=== PATIENT | male | born 1960 | race Caucasian/White ===

== ENCOUNTER 2024-03-18 14:46 | Outpatient (RCR) | payer MEDICARE, SELFPAY ==
--- NOTE | 2024-03-18 16:06 | OPREHPOC ---
Outpatient Therapy Plan of Care This is a Multidisciplinary Plan of Care that may contain components documented by all disciplines (PT, OT, and ST.) PT Problem 1 PT Problem #1 Knowledge Deficit PT Goal 1 Goal The patient will be independent in a home exercise program. Target Visit 2 PT Problem 2 PT Problem #2 Impaired Vestibular Syste PT Goal 1 Goal The patient will demonstrate negative Deb Hallpike and Supine Roll tests. Target Visit 6 Progress Partially Met PT Problem 3 PT Problem #3 Impaired Functional Mobil PT Goal 1 Goal 1. The patient will report the ability to lay on his side without vertigo symptoms. 2. The patient will demonstrate less than 6% self perceived disability per the [facility]. Target Visit 6
--- NOTE | 2024-03-18 16:06 | PTOPEVAL1 ---
Assessment and note entered by Marina Chavarria, PT Evaluation Information Assessment Status Evaluation ICD-10 Condition Codes (PT) BPPV right ear H81.11,BPPV H81.12 Onset 03/13/24 Subjective Information Pavithra Vaughan reports he had an inner ear infection in both ears about 3 weeks ago and the last 5-6 days he has not been able to sleep due to dizziness and pain in his ears. He went to the doctor and was prescribed an antibiotic which he thinks made him feel more dizzy. He notes dizziness when trying to lay on his side and when he sits up from laying down. He denies use of alcohol or tobacco. He also denies symptoms when moving his head up and down or side to side. He feels like he is the one moving when he feels dizzy. He has not experienced nausea or vomiting. He denies falls because of the dizziness. He does take medication for blood pressure and cholesterol but reports no changes in his medication. Reported Pain Level Pain Score 5: Self Report Assessment PT Clinical Summary Pavithra Vaughan presents with dizziness that occurs with laying down trying to sleep and when he sits up from laying down. He was recently diagnosed with an inner ear infection on both sides. He started having dizziness 5-6 days ago. He objectively demonstrates reproduction of symptoms with the R Deb Hallpike and R supine roll test. He was educated on positional vertigo and treatment consisting of the Wu manuever on the right side was applied. The patient reported minimal vertigo by the 3rd round. He will benefit from skilled PT to address positional vertigo. Plan of Care Interventions Neuro Re-education,Patient/Caregiver Educati, Therapeutic Exercise PT Services Indicated Yes Treatment Frequency and 2 times a week for 6 visists. Duration These treatments will address the objective and functional deficits as defined above. The patient will be advanced safely and appropriately in order for the patient to progress towards his/her prior level of function. Additional exercises will be introduced and as well as a comprehensive home exercise program upon discharge, if needed, ?to ensure carryover of functional gains achieved in the clinic. This treatment plan has been reviewed and agreement upon by the patient.
--- NOTE | 2024-03-27 14:24 | OPREHPOC ---
Outpatient Therapy Plan of Care This is a Multidisciplinary Plan of Care that may contain components documented by all disciplines (PT, OT, and ST.) PT Problem 1 PT Problem #1 Knowledge Deficit PT Goal 1 Goal The patient will be independent in a home exercise program. Target Visit 2 Progress Met PT Problem 2 PT Problem #2 Impaired Vestibular Syste PT Goal 1 Goal The patient will demonstrate negative Deb Hallpike and Supine Roll tests. Target Visit 6 Progress Met PT Problem 3 PT Problem #3 Impaired Functional Mobil PT Goal 1 Goal 1. The patient will report the ability to lay on his side without vertigo symptoms. 2. The patient will demonstrate less than 6% self perceived disability per the [facility]. Target Visit 6 Progress Met
--- NOTE | 2024-03-27 14:24 | PTOPDC ---
Assessment and note entered by Marina Chavarria, PT Evaluation Information Assessment Status Discharge ICD-10 Condition Codes (PT) BPPV right ear H81.11,BPPV H81.12 Onset 03/13/24 Subjective Information Pavithra Vaughan reports he is no longer experiencing dizziness or ringing in his ears. He has returned to all previous activities and is able to sleep without disturbance. Reported Pain Level Pain Score 0: Self Report Assessment PT Clinical Summary Pavithra Vaughan has completed 3 skilled PT visits for vertigo. He is reporting completely resolved symptoms and no difficulty performing daily activities and sleeping. He demonstrates no positive special tests indicating vertigo and he is able to move his head actively in all directions without vertigo. He will be discharged from skilled PT, Plan of Care PT Services Indicated No
== END 2024-03-27 14:44 | disposition home or self-care (01) ==
LOC: CHSPT 14:46
PROVIDERS: Visit Provider Nurse Practitioner Family
DX: H81.10 Benign paroxysmal vertigo, unspecified ear (principal)
CPT/HCPCS: 97110; 97112; 97161; 97750

== ENCOUNTER 2024-08-22 09:14 | Outpatient (CLI) | payer MEDICARE, SELFPAY ==
--- NOTE | ~2024-08-22 | CT_ITS ---
EXAMINATION: CT soft tissue neck w con DATE: 08/22/2024 10:16 INDICATION: Sore throat. Lymphadenopathy. Tonsillar hypertrophy. TECHNIQUE: Computed tomography (CT) of the neck was performed with 75 mL Omnipaque-350 intravenous co ntrast. Automated exposure control and iterative reconstruction technique were employed. The dose-kareem gth product was 508.34 mGy-cm. COMPARISON: None FINDINGS: A mildly enlarged right mid internal jugular chain node measures 11 x 14 mm. The pharynx an d larynx are unremarkable. There is fat stranding in the submandibular region. There is mild mucosal thickening in the paranasal sinuses. There is a trace left mastoid effusion. There is extensive denta l disease involving the remaining teeth. There is mild cervical spondylosis. There is plaque in the p roximal internal carotid arteries with less than 50% stenosis relative to normal distal artery lumen diameters. IMPRESSION: 1. Fat stranding in the submandibular region, consistent with inflammation versus edema. 2. Mildly enlarged right mid internal jugular chain lymph node, likely reactive. 3. Dental disease. Reviewed, dictated and finalized at location A. ATORY ANIMAL EXTERMINATOR IMPRESSION: 1. Fat stranding in the submandibular region, consistent with inflammation vers us edema. 2. Mildly enlarged right mid internal jugular chain lymph node, likely reactive . 3. Dental disease.
[2024-08-22 09:41] LABS: Basophils Absolute Auto 0.06 K/mm3 (0.00-0.10); Basophils Percent Auto 0.6 % (0.0-1.0); Eosinophils Absolute Auto 0.06 K/mm3 (0.02-0.50); Eosinophils Percent Auto 0.6 % (1.0-6.0); Hematocrit 44.3 % (37.0-46.0); Hemoglobin 14.7 g/dL (12.4-15.3); Immature Granulocyte Absolute 0.04 K/mm3 (0.00-0.00); Immature Granulocyte Percent A 0.4 % (0.0-0.0); Lymphocytes Absolute Auto 1.95 K/mm3 (1.10-4.50); Lymphocytes Percent Auto 19.1 % (18.0-42.0); Mean Corpuscular HGB Conc 33.2 g/dL (32-36); Mean Corpuscular Hemoglobin 27.7 pg (27.0-31.0); Mean Corpuscular Volume 83.4 fL (78.0-102.0); Mean Platelet Volume 9.3 fl (8.7-11.0); Monocytes Absolute Auto 1.02 K/mm3 (0.10-0.90); Neutrophils Absolute Auto 7.08 K/mm3 (1.70-7.20); Neutrophils Percent Auto 69.3 % (50.0-70.0); Platelet Count Result 214 K/mm3 (150-420); Red Blood Count 5.31 M/mm3 (4.70-6.10); Red Cell Distribution Width 13.2 % (11.6-14.4); White Blood Count 10.2 K/mm3 (4.8-10.8)
[2024-08-22 09:55] LABS: Alanine Aminotransferase 61 U/L (16-63); Alkaline Phosphatase 95 U/L (46-116); Anion Gap 8 mmol/L (4-12); Aspartate Amino Transferase 46 U/L (15-37); Blood Urea Nitrogen 16 mg/dL (7-18); Calcium 8.9 mg/dL (8.5-10.1); Carbon Dioxide 29 mmol/L (21-32); Chloride 100 mmol/L (98-108); Estimated Glomerular Filt Rate > 60; Glucose 105 mg/dL (70-99); Osmolality Calculated 285 mOsm/kg (285-295); Potassium 4.1 mmol/L (3.5-5.1); Sodium 137 mmol/L (136-145); Total Protein 7.5 g/dL (6.4-8.2)
== END 2024-08-22 09:15 | disposition home or self-care (01) ==
PROVIDERS: PCP Internal Medicine; Visit Provider Nurse Practitioner Family
DX: J02.9 Acute pharyngitis, unspecified (principal); R59.1 Generalized enlarged lymph nodes; J35.1 Hypertrophy of tonsils; R59.0 Localized enlarged lymph nodes; K08.9 Disorder of teeth and supporting structures, unspecified
CPT/HCPCS: 36415; 70491; 80053; 85025; 87070; Q9967

== ENCOUNTER 2024-10-16 13:56 | Outpatient (CLI) | payer MEDICARE, SELFPAY ==
--- NOTE | 2024-10-16 14:01 | ECG_ITS ---
Test Date: 2024-10-16 14:13:06 Measurements Intervals [place] Rate: 88 P: 58 HI: 184 QRS: 51 QRSD: 118 T: 58 QT: 375 QTc: 455 Interpretive Statements SINUS RHYTHM No previous ECG available for comparison Electronically Signed On 10-16-2024 14:14:51 [employer] by Claudy Glover M.D.
--- OUTSIDE RECORDS SUMMARY | 2024-10-16 15:15 | XMS_ITS | Clinical Summary ---
Author Organization [facility] Address [address] [place] [address] Care Team Providers Care Sap Manager Name Role Phone Júnior Christine MD Primary Care Provider [phone] Allergies No known active allergies Medications lisinopril 10 MG tablet Take 1 tablet (10 mg total) by mouth daily. Active atorvastatin 10 MG tablet Take 1 tablet (10 mg total) by mouth nightly at bedtime. Active albuterol (2.5 MG/3ML) 0.083% nebulizer solution 06/09/2021 Active ibuprofen (MOTRIN) 800 MG tablet Take 1 tablet (800 mg total) by mouth every 8 (eight) hours as needed for Pain. 21 tablet 08/12/2024 Active Active Problems No known active problems Encounters Date Type Department Care Team Description 08/26/2024 7:39 AM MANUFACTURING INDUSTRIAL ENGINEER - 08/26/2024 11:59 PM [facility] Hospital Encounter [facility] [address] [place] [address] Júnior Christine MD Discharge Disposition: Home or Self Care (Routine Discharge) 08/26/2024 7:39 AM MANUFACTURING INDUSTRIAL ENGINEER - 08/26/2024 11:59 PM [facility] Hospital Encounter [facility] [address] [place] [address] Júnior Christine MD Discharge Disposition: Home or Self Care (Routine Discharge) 08/26/2024 Travel 08/15/2024 7:23 PM MANUFACTURING INDUSTRIAL ENGINEER - 08/15/2024 8:42 PM [facility] [address] [place] [address] Get Serra DO Sore Throat Discharge Disposition: Home or Self Care (Routine Discharge) 08/15/2024 Travel 08/12/2024 4:45 PM MANUFACTURING INDUSTRIAL ENGINEER - 08/12/2024 5:03 PM MANUFACTURING INDUSTRIAL ENGINEER [facility] [address] [place] [address] [place] [address] Adelita Juan MD Leg Pain Discharge Disposition: Home or Self Care (Routine Discharge) 08/12/2024 Travel 08/07/2024 Transcribe Orders [facility] Pre Access Team [address] [place] [address] Yasmani Hernandez MD 08/03/2024 7:27 PM MANUFACTURING INDUSTRIAL ENGINEER - 08/03/2024 8:54 PM MANUFACTURING INDUSTRIAL ENGINEER [facility] [address] [place] [address] [place] [address] Charity Burnham MD Respiratory Symptoms Discharge Disposition: Home or Self Care (Routine Discharge) 08/03/2024 Travel from Last 3 Months Family History Medical History Relation Comments Mental Health Father Asthma Mother Relation Status Comments Father Mother Social History Tobacco Use Types Packs/Day Years Used Date Smoking Tobacco: Never Smokeless Tobacco: Never Alcohol Use Standard Drinks/Week Comments No 0 (1 standard drink = 0.6 oz pur e alcohol) AUDIT-C Answer Date Recorded Frequency of Alcohol Consumption Never 08/25/2019 Average Number of Drinks Not on file 020 Frequency of Binge Drinking Not on file 08/13 Sex and Gender Information Value Date Recorded Sex Assigned at Not on file Legal Sex Male 8:51 PM CDT Gender Identity Not on file Sexual Orientation Not on file Last Filed Vital Signs Vital Sign Reading Time Taken Comments Blood Pressure 163/91 08/15/2024 8:42 PM MANUFACTURING INDUSTRIAL ENGINEER Pulse 104 08/15/2024 7:30 PM MANUFACTURING INDUSTRIAL ENGINEER Temperature 36.6 C (97.8 F) 08/15/2024 7:30 PM MANUFACTURING INDUSTRIAL ENGINEER Respiratory Rate 18 08/15/2024 7:30 PM MANUFACTURING INDUSTRIAL ENGINEER Oxygen Saturation 92% 08/15/2024 8:41 PM MANUFACTURING INDUSTRIAL ENGINEER Inhaled Oxygen Concentration - - Weight 119.7 kg (263 lb 12.8 oz) 08/15/2024 7:30 PM MANUFACTURING INDUSTRIAL ENGINEER Height 172.7 cm (5' 8 ) 08/15/2024 7:30 PM MANUFACTURING INDUSTRIAL ENGINEER Body Mass Index 40.11 08/15/2024 7:30 PM MANUFACTURING INDUSTRIAL ENGINEER Plan of Treatment Health Maintenance Due Date Last Done Comments Colorectal Cancer Screening Colonoscopy (10 Years) 1960 Hepatitis C 1977 DTaP, Tdap and Td Vaccines ( 1 - Tdap) 1978 Zoster Vaccines (1 of 2) 2009 RSV Immunization or 60+ Years (1 - Risk 60-74 years 1-dose series) 2019 Pneumococcal Vaccine: 65+ Ye ars (1 of 1 - PCV) 02/09/2024 COVID-19 Vaccine (1 - 2023-2 5 season) 2024 Influenza Adult (#1) 2024 Meningococcal B Vaccine Aged Out No l onger eligible based on patient's age to complete this topic Meningococcal Vaccine Aged Out No gia alvin eligible based on patient's age to complete this topic Pneumococcal Vaccine: Pediat rics (0 to 5 Years) and At-Risk Patients (6 to 64 Years) Aged Out No longer eligible b ased on patient's age to complete this topic RSV Immunizations Under 20 Months Aged Out No longer eligible based on patient's age to complete this topic Procedures Procedure Name Priority Date/Time Associated Diagnosis Comments USE ECHOCARDIOGRAM W CON Routine 08/26/2024 9:28 AM MANUFACTURING INDUSTRIAL ENGINEER Dyspnea PULMONARY FUNCTION TEST Routine 08/26/19 7:39 AM MANUFACTURING INDUSTRIAL ENGINEER Dyspnea INFLUENZA A & B STAT 08/15/2024 7:21 PM MANUFACTURING INDUSTRIAL ENGINEER STREP A RAPID STAT 08/15/2024 7:21 PM MANUFACTURING INDUSTRIAL ENGINEER CORONAVIRUS (COVID-19) ANTIGEN STAT 08/15/2024 7:21 PM MANUFACTURING INDUSTRIAL ENGINEER XR CHEST PORTABLE STAT 08/03/2024 8:1 8 PM MANUFACTURING INDUSTRIAL ENGINEER ECG 12-LEAD STAT 08/03/2024 8:02 PM MANUFACTURING INDUSTRIAL ENGINEER PRO-BRAIN NATRIURETIC PEPTIDE STAT 08/03/2024 7:55 PM MANUFACTURING INDUSTRIAL ENGINEER MAGNESIUM STAT 08/03/2024 7:55 PM MANUFACTURING INDUSTRIAL ENGINEER TROPONIN, QUANT STAT 08/03/2024 7:55 PM MANUFACTURING INDUSTRIAL ENGINEER COMPREHENSIVE METABOLIC PANEL STAT 08/03/2024 7:55 PM MANUFACTURING INDUSTRIAL ENGINEER CBC W/DIFF AUTOMATED STAT 08/03/2024 7:55 PM MANUFACTURING INDUSTRIAL ENGINEER INFLUENZA A & B STAT 08/03/2024 7:50 PM MANUFACTURING INDUSTRIAL ENGINEER CORONAVIRUS (COVID-19) ANTIGEN STAT 08/03/2024 7:50 PM MANUFACTURING INDUSTRIAL ENGINEER from Last 3 Months Results * USE ECHOCARDIOGRAM W CON (08/26/2024 9:28 AM MANUFACTURING INDUSTRIAL ENGINEER) Anatomical Region Laterality Modality NA Ultrasound 08/26/2024 8:40 AM MANUFACTURING INDUSTRIAL ENGINEER Narrative 08/27/2024 7:22 AM MANUFACTURING INDUSTRIAL ENGINEER Echocardiography Report Pat.Name: Pavithra Vaughan Pat.ID: [id number] .Date: 08/26/2024 Refer.MD: Jose Luis, [facility] Exam Time: 8:40:00 AM Study Type:[facility] Height: 68 in Weight: 248 lb BSA: 2.24 m2 Age: 6 1960,64Y Sex: M Sonogrphr: Am Pat. Stat.:Outpatient Reason for Study:Dyspnea Procedures: Study performed at [facility], [place], [place] and interpreted by [facility]. 2D, M-mode, Doppler, Color Flow, Myocardial contrast was used to enhance endocardial definition. ++++++++++++++++++++++++++++++++++++ SUMMARY: ++++++++++++++++++++++++++++++++++++ The left ventricular size is normal. Estimated left ventricular ejection fraction is 55-60%. Left ventricular diastolic function is abnormal (grade 1 - impaired relaxation). Wall motion appears normal in all segments. The right ventricle size is normal. The right ventricular function is normal. No evidence of pericardial effusion. No significant valvular heart disease. ++++++++++++++++++++++++++++++++++++ FINDINGS: ++++++++++++++++++++++++++++++++++++ LV: The left ventricular size is normal. The left ventricular systolic function is normal. Estimated left ventricular ejection fraction is 55-60%. Left ventricular diastolic function is abnormal (grade 1 - impaired relaxation). WM: Wall motion appears normal in all segments. RV: The right ventricle size is normal. The right ventricular function is normal. LA: Left atrial size is normal. RA: The right atrial size is normal. STEPHEN: No evidence of pericardial effusion. AO: Aorta is normal. PA: Unable to reliably quantitate pulmonary systolic pressure. SVn: Inferior vena cava is not assessable. AV: The aortic valve is trileaflet. No evidence of aortic valve stenosis. Trace aortic regurgitation. MV: The mitral valve is structurally normal. There is trace mitral regurgitation. PV: The pulmonic valve is normal There is trace pulmonic regurgitation TV: The tricuspid valve appears structurally normal. There is trace tricuspid regurgitation. <Electronic Signature> 08/27/2024 07:22 AM Brisa Medrano M.D. Procedure Note Brisa Medrano MD - 08/27/2024 Echocardiography Report Pat.Name: Pavithra Vaughan Pat.ID: [id number] .Date: 08/26/2024 [facility]00 AM Study Type:[facility] Height: 68 in Weight: 248 lb BSA: 2.24 m2 Age: 6 1960,64Y Sex: M Sonogrphr: Am Pat. Stat.:Outpatient Reason for Study:Dyspnea Procedures: Study performed at [place], [place] and interpreted by [facility]. 2D, M-mode, Doppler, Color Flow, Myocardial contrast was used to enhance endocardial definition. ++++++++++++++++++++++++++++++++++++ SUMMARY: ++++++++++++++++++++++++++++++++++++ The left ventricular size is normal. Estimated left ventricular ejection fraction is 55-60%. Left ventricular diastolic function is abnormal (grade 1 - impaired relaxation). Wall motion appears normal in all segments. The right ventricle size is normal. The right ventricular function is normal. No evidence of pericardial effusion. No significant valvular heart disease. ++++++++++++++++++++++++++++++++++++ FINDINGS: ++++++++++++++++++++++++++++++++++++ LV: The left ventricular size is normal. The left ventricular systolic function is normal. Estimated left ventricular ejection fraction is 55-60%. Left ventricular diastolic function is abnormal (grade 1 - impaired relaxation). WM: Wall motion appears normal in all segments. RV: The right ventricle size is normal. The right ventricular function is normal. LA: Left atrial size is normal. RA: The right atrial size is normal. STEPHEN: No evidence of pericardial effusion. AO: Aorta is normal. PA: Unable to reliably quantitate pulmonary systolic pressure. SVn: Inferior vena cava is not assessable. AV: The aortic valve is trileaflet. No evidence of aortic valve stenosis. Trace aortic regurgitation. MV: The mitral valve is structurally normal. There is trace mitral regurgitation. PV: The pulmonic valve is normal There is trace pulmonic regurgitation TV: The tricuspid valve appears structurally normal. There is trace tricuspid regurgitation. <Electronic Signature> 08/27/2024 07:22 AM Brisa Medrano M.D. Júnior Christine MD ECHO Final Result * CORONAVIRUS (COVID-19) ANTIGEN (08/15/2024 7:21 PM MANUFACTURING INDUSTRIAL ENGINEER) Only the most recent of2 resultswithin the time period is included. [facility] CORONAVIRUS ANTIGEN IA NEGATIVE NEGATIVE 08/15/2024 8:09 PM MANUFACTURING INDUSTRIAL ENGINEER [facility] Comment: NEGATIVE RESULTS DO NOT RULE OUT SARS-COV-2 INFECTION AND SHOULD NOT BE USED THE SOLE BASIS FOR TREATMENT OR PATIENT MANAGEMENT DECISIONS, INCLUDING INFECTION CONTROL DECISIONS. NEGATIVE RESULTS SHOULD BE CONSIDERED IN THE CONTEXT OF A PATIENT'S RECENT EXPOSURES, HISTORY AND THE PRESENCE OF CLINICAL SIGNS AND SYMPTOMS CONSISTENT WITH COVID 19. THIS TEST HAS BEEN AUTHORIZED BY THE FDA UNDER AN EMERGENCY USE AUTHORIZATION (EUA) FOR USE BY AUTHORIZED LABORATORIES. SPECIMEN TYPE NASAL 08/15/2024 7:30 PM MANUFACTURING INDUSTRIAL ENGINEER [facility] NASAL NASAL STRUCTURE / Unknown 08/15/2024 7:21 PM MANUFACTURING INDUSTRIAL ENGINEER us Get Serra DO MICROBIOLOGY - GENERAL ORDERABLE S Final Result [facility] [employer] [place] [address], * INFLUENZA A & B (08/15/2024 7:21 PM MANUFACTURING INDUSTRIAL ENGINEER) Only the most recent of2 resultswithin the time period is included. SPECIMEN TYPE (INFLUENZA) NASAL 08/15/2024 7:30 PM MANUFACTURING INDUSTRIAL ENGINEER [facility] INFLUENZA A NEGATIVE NEGATIVE 08/15/2024 8:09 PM MANUFACTURING INDUSTRIAL ENGINEER [facility] INFLUENZA B NEGATIVE NEGATIVE 08/15/2024 8:09 PM MANUFACTURING INDUSTRIAL ENGINEER [facility] Comment: A NEGATIVE RESULT DOES NOT EXCLUDE INFLUENZA VIRUS INFECTION. IF INFLUENZA IS CIRCULATING IN YOUR COMMUNITY, A DIAGNOSIS OF INFLUENZA SHOULD BE CONSIDERED BASED ON A PATIENT'S CLINICAL PRESENTATION AND EMPIRIC ANTIVIRAL TREATMENT SHOULD BE CONSIDERED IF INDICATED. NASAL STRUCTURE / Unknown 08/15/2024 7:21 PM MANUFACTURING INDUSTRIAL ENGINEER us Get Serra DO MICROBIOLOGY - GENERAL ORDERABLE S Final Result [facility] [address] [place] [address], [place] [phone] * STREP A RAPID (08/15/2024 7:21 PM MANUFACTURING INDUSTRIAL ENGINEER) SPECIMEN SOURCE THROAT 08/15/2024 7:30 PM MANUFACTURING INDUSTRIAL ENGINEER [facility] RAPID STREP TEST NEGATIVE NEGATIVE 08/15/2024 7:49 PM MANUFACTURING INDUSTRIAL ENGINEER [facility] STRUCTURE OF ANTERIOR PORTION OF NECK / Unknown 08/15/2024 7:21 PM MANUFACTURING INDUSTRIAL ENGINEER us Get Serra DO MICROBIOLOGY - GENERAL ORDERABLE S Final Result [facility] [address] [place] [address], * XR CHEST PORTABLE (08/03/2024 8:18 PM MANUFACTURING INDUSTRIAL ENGINEER) Anatomical Region Laterality Modality Chest Radiographic Sandrita ging 08/03/2024 8:36 PM MANUFACTURING INDUSTRIAL ENGINEER Impressions 08/03/2024 9:25 PM MANUFACTURING INDUSTRIAL ENGINEER IMPRESSION: 1. Central pulmonary vascular congestion with no jimmie pulmonary edema. Trace left-sided pleural effusion. Dictated By: James Samaniego MD on 08/03/2024 8:36 PM The attending radiologist has reviewed the image(s) and agrees with the content of this report. Ordered By: CHARITY BURNHAM Interpreted By: James Samaniego MD, 08/03/2024 8:36 PM Narrative 08/03/2024 9:25 PM MANUFACTURING INDUSTRIAL ENGINEER [place] [address] [place] [address] Examination: XR CHEST PORTABLE Clinical history: Chest pain Exam time: 08/03/2024 8:18 PM Comparison: X-ray 08/19/2023, 10/20/2021 Technique: AP views of the chest were obtained. Findings: The cardiomediastinal silhouette appears unremarkable and the heart size is within normal parameters. Central pulmonary vascular congestion. No parenchymal consolidations are identified. Trace left-sided pleural effusion. There is no pneumothorax. No acute osseous abnormality is identified. Procedure Note Rommel Tapia MD - 08/03/2024 [place] [address] [place] [address] Examination: XR CHEST PORTABLE Clinical history: Chest pain Exam time: 08/03/2024 8:18 PM Comparison: X-ray 08/19/2023, 10/20/2021 Technique: AP views of the chest were obtained. Findings: The cardiomediastinal silhouette appears unremarkable and the heart sizeis within normal parameters. Central pulmonary vascular congestion. Noparenchymal consolidations are identified. Trace left-sided pleuraleffusion. There is no pneumothorax. No acute osseous abnormality isidentified. IMPRESSION: 1. Central pulmonary vascular congestion with no jimmie pulmonary edema.Trace left-sided pleural effusion. Dictated By: James Samaniego MD on 08/03/2024 8:36 PM The attending radiologist has reviewed the image(s) and agrees with thecontent of this report. Ordered By: CHARITY BURNHAM Interpreted By: James Samaniego MD, 08/03/2024 8:36 PM us Charity Burnham MD GENERAL IMAGING Final Result * ECG 12 lead (08/03/2024 8:02 PM MANUFACTURING INDUSTRIAL ENGINEER) 08/03/2024 8:02 PM MANUFACTURING INDUSTRIAL ENGINEER Narrative [facility] - 08/03/2024 9:27 PM MANUFACTURING INDUSTRIAL ENGINEER [address] [place] [address] Test Date: 2024-08-03 Pat Name: PAVITHRA VAUGHAN Department: 3 Room: EXAM 5 Gender: Male Lead Shipper: : 1960 Requested By: CHARITY BURNHAM Order Number: [id number] Sergio MD: Todd Iglesias Measurements Intervals [place] Rate: 85 P: 28 [place]: 197 QRS: 6 QRSD: 90 T: 36 QT: 342 QTc: 407 Interpretive Statements SINUS RHYTHM FACTURING INDUSTRIAL ENGINEER Procedure Note Todd Iglesias MD - 08/03/[address] [place] [address] Test Date: 2024-08-03 Pat Name: PAVITHRA VAUGHAN Department: 3 Room: EXAM 5 Gender: Male Lead Shipper: : 1960 Requested By: CHARITY BURNHAM Order Number: [id number] Reading MD: Todd Iglesias Measurements Intervals [place] Rate: 85 P: 28 [place]: 197 QRS: 6 QRSD: 90 T: 36 QT: 342 QTc: 407 Interpretive Statements SINUS RHYTHM FACTURING INDUSTRIAL ENGINEER Charity Burnham MD ECG ORDERABLES Final Result Performing Organization Address [facility] Co de Phone Number [facility] * PRO-BRAIN NATRIURETIC PEPTIDE (08/03/2024 7:55 PM MANUFACTURING INDUSTRIAL ENGINEER) PRO-B TYPE NATRIURETIC PEPTIDE 27 <125 PG/ML 08/03/2024 8:26 PM MANUFACTURING INDUSTRIAL ENGINEER [facility] Comment: CUT POINTS ESTABLISHED BY INTERNATIONAL COLLABORATIVE ON NT PROBNP (ICON) STUDY (2006). AGE INDEPENDENT: <300 PG/ML HAS A 99% NEGATIVE PREDICTIVE VALUE FOR EXCLUDING ACUTE CHF <50 YEARS: >450 PG/ML IS CONSISTENT WITH ACUTE CHF 50-75 YEARS: >900 PG/ML IS CONSISTENT WITH ACUTE CHF >75 YEARS: >1800 PG/ML IS CONSISTENT WITH ACUTE CHF IN PATIENTS WITH RENAL INSUFFICIENCY (GFR <60), >1200 PG/ML YIELDS A DIAGNOSTIC SENSITIVITY AND SPECIFICITY OF 89% AND 72% FOR ACUTE CHF. 08/03/2024 7:55 PM MANUFACTURING INDUSTRIAL ENGINEER us Charity Burnham MD LABORATORY Final Result Performing Organization Address City/[facility]/ZIP Co de Phone Number [facility] [address] [place] [address], * (ABNORMAL) COMPREHENSIVE METABOLIC PANEL (08/03/2024 7:55 PM MANUFACTURING INDUSTRIAL ENGINEER) SODIUM S/P/B 140 136 - 145 MMOL/L 08/03/2024 8:26 PM MANUFACTURING INDUSTRIAL ENGINEER [facility] POTASSIUM S/P/B 3.9 3.5 - 5.1 MMOL/L 08/03/2024 8:26 PM [facility] CHLORIDE S/P/B 102 98 - 107 MMOL/L 08/03/2024 8:26 PM [facility] CO2 26.2 21.0 - 32.0 MMOL/L 08/03/2024 8:26 PM [facility] GLUCOSE 119(H) 70 - 99 MG/DL 08/03/2024 8:26 PM [facility] Comment: FASTING GLUCOSE 100 TO 125 MG/DL IS CONSISTENT WITH IMPAIRED FASTING GLUCOSE. FASTING GLUCOSE >125 MG/DL IS CONSISTENT WITH DIABETES. RANDOM GLUCOSE >200 MG/DL WITH HYPERGLYCEMIC SYMPTOMS IS CONSISTENT WITH DIABETES. PER ADA GUIDELINES BUN 20 6 - 24 MG/DL 08/03/2024 8:26 PM [facility] CREATININE S/P/B 0.97 0.70 - 1.30 MG/DL 08/03/2024 8:26 PM [facility] CALCIUM S/P/B 8.9 8.4 - 10.5 MG/DL 08/03/2024 8:26 PM [facility] BILIRUBIN TOTAL S/P/B 0.4 0.2 - 1.0 MG/DL 08/03/2024 8:26 PM [facility] Comment: THIS ASSAY IS NOT RECOMMENDED FOR PATIENTS UNDERGOING TREATMENT WITH ELTROMBOPAG DUE TO THE POTENTIAL FOR FALSELY ELEVATED RESULTS. ALKALINE PHOSPHATASE S/P/B 104 45 - 115 U/L 08/03/2024 8:26 PM [facility] AST 23 15 - 37 U/L 08/03/2024 8:26 PM [facility] ALT 40 16 - 63 U/L 08/03/2024 8:26 PM [facility] TOTAL PROTEIN S/P/B 7.5 6.4 - 8.2 G/DL 08/03/2024 8:26 PM [facility] ALBUMIN S/P/B 3.9 3.4 - 5.0 G/DL 08/03/2024 8:26 PM [facility] ANION GAP 11.8 5.0 - 15.0 MMOL/L 08/03/2024 8:26 PM [facility] OSMOLALITY (CALC) 294 MOSM/KG 024 8:26 PM MANUFACTURING INDUSTRIAL ENGINEER [facility] Comment:REFERENCE RANGE NOT ESTABLISHED GFR ESTIMATE 87(L) >89 ML/MIN/1. 73 M2 08/03/2024 8:26 PM MANUFACTURING INDUSTRIAL ENGINEER [facility] GFR NOTES GFR REFERENCE S: 08/03/2024 8:26 PM MANUFACTURING INDUSTRIAL ENGINEER [facility] Comment: THE ESTIMATED GFR IS CALCULATED USING THE 2020 CKD-EPI EQUATION. THE FOLLOWING CATEGORIES FOR GRADING RENAL FUNCTION ARE RECOMMENDED BY THE INTERNATIONAL SOCIETY OF NEPHROLOGY (KDIGO 2012 CLINICAL PRACTICE GUIDELINE). G1,NORMAL OR HIGH: >89 ml/min/1.73 m2 G2,MILDLY DECREASED: 60-89 ml/min/1.73 m2 G3A,MILDLY TO MODERATELY DECREASED: 45-59 ml/min/1.73 m2 G3B,MODERATELY TO SEVERELY DECREASED: 30-44 ml/min/1.73 m2 G4,SEVERELY DECREASED: 15-29 ml/min/1.73 m2 G5,KIDNEY FAILURE: <15 ml/min/1.73 m2 08/03/2024 7:55 PM MANUFACTURING INDUSTRIAL ENGINEER us Charity Burnham MD LABORATORY Final Result [facility] [address] [place] [address], * (ABNORMAL) CBC W/DIFF AUTOMATED (08/03/2024 7:55 PM MANUFACTURING INDUSTRIAL ENGINEER) WBC 11.15(H) 4.00 - 10.80 x10'3/uL 08/03/2024 8:04 PM MANUFACTURING INDUSTRIAL ENGINEER [facility] RBC 5.32 4.50 - 6.10 x10'6/uL 08/03/2024 8:04 PM MANUFACTURING INDUSTRIAL ENGINEER [facility] HGB 15.2 13.0 - 18.0 G/DL 08/03/2024 8:04 PM MANUFACTURING INDUSTRIAL ENGINEER [facility] HCT 43.8 37.0 - 52.0 % 08/03/2024 8:04 PM MANUFACTURING INDUSTRIAL ENGINEER [facility] MCV 82.3 78.0 - 100.0 FL 08/03/2024 8:04 PM [facility] MCH 28.6 27.0 - 31.0 PG 08/03/2024 8:04 PM [facility] MCHC 34.7 33.0 - 36.0 G/DL 08/03/2024 8:04 PM [facility] RDW 12.7 11.5 - 14.5 % 08/03/2024 8:04 PM [facility] PLT 220 150 - 350 x10'3/uL 08/03/2024 8:04 PM [facility] MPV 10.2 7.4 - 10.4 FL 08/03/2024 8:04 PM [facility] CBC COMMENT NORMAL REFERENCE RANGE NOT ESTABLISHED FOR THE PROPORTIONAL LEUKOCYTE DIFFERENTIAL. 08/03/2024 8:04 PM [facility] NEUTROPHILS % 59.3 % 08/03/2024 8:04 PM [facility] LYMPHOCYTES % 25.0 % 08/03/2024 8:04 PM [facility] MONOCYTES % 9.8 % 08/03/2024 8:04 PM [facility] EOSINOPHILS % 4.5 % 08/03/2024 8:04 PM [facility] BASOPHILS % 1.0 % 08/03/2024 8:04 PM [facility] IMMATURE GRANS % 0.4 % 08/03/20 8:04 PM [facility] NRBC % 0.0 % 08/03/2024 8:04 PM [facility] ABS. NEUTROPHILS 6.62 1.60 - 8.30 x10'3/uL 08/03/2024 8:04 PM [facility] ABS. LYMPHOCYTES 2.79 0.80 - 4.70 x10'3/uL 08/03/2024 8:04 PM [facility] ABS. MONOCYTES 1.09 0.00 - 1.50 x10'3/uL 08/03/2024 8:04 PM [facility] ABS. EOSINOPHILS 0.50(H) 0.00 - 0.40 x10'3/uL 08/03/2024 8:04 PM MANUFACTURING INDUSTRIAL ENGINEER [facility] ABS. BASOPHILS 0.11 0.00 - 0.20 x10'3/uL 08/03/2024 8:04 PM MANUFACTURING INDUSTRIAL ENGINEER [facility] ABS. IMMATURE GRANULOCYTES 0.04(H) 0.00 - 0.03 x10'3/uL 08/03/2024 8:04 PM MANUFACTURING INDUSTRIAL ENGINEER [facility] ABS. NUCLEATED RBC'S 0.00 0.00 - 0.01 x10'3/uL 08/03/2024 8:04 PM MANUFACTURING INDUSTRIAL ENGINEER [facility] 08/03/2024 7:55 PM MANUFACTURING INDUSTRIAL ENGINEER us Charity Burnham MD LABORATORY Final Result Performing Organization Address [facility]/[place] [address], * TROPONIN, QUANT (08/03/2024 7:55 PM MANUFACTURING INDUSTRIAL ENGINEER) TROPONIN I HIGH SENSITIVITY 10 0 - 76 ng/L 08/03/2024 8:26 PM MANUFACTURING INDUSTRIAL ENGINEER [facility] 08/03/2024 7:55 PM MANUFACTURING INDUSTRIAL ENGINEER us Charity Burnham MD LABORATORY Final Result Performing Organization Address City/[facility]/ZIP Co de Phone Number [facility] [address] [place] [address], * MAGNESIUM (08/03/2024 7:55 PM MANUFACTURING INDUSTRIAL ENGINEER) MAGNESIUM 2.0 1.8 - 2.4 MG/DL 08/03/2024 8:26 PM MANUFACTURING INDUSTRIAL ENGINEER [facility] 08/03/2024 7:55 PM MANUFACTURING INDUSTRIAL ENGINEER us Charity Burnham MD LABORATORY Final Result [facility] [address] [place] [address], [place] [phone] from Last 3 Months Insurance [facility] MEDICAID Care Teams Sap Manager Relationship Specialty Start Date End Date Júnior Christine MD [address] [place] [address] PCP - General INTERNAL MEDICINE 08/12/24
--- OUTSIDE RECORDS SUMMARY | 2024-10-16 15:15 | XMS_ITS | Encounter Summary ---
Author Organization [facility] Address [facility] [place] [address] Care Team Providers Care Machine Tender Name Role Phone Yasmani Hernandez MD Primary Care Provider [phone] Júnior Christine MD Primary Care Provider [phone] Encounter Details Date Type Department Care Team (Late st Contact Info) Description 01/18/2019 Abstract [facility] CONVERSION [address] [place] [address] , Generic Javed, Social History Tobacco Use Types Packs/Day Years Used Date Smoking Tobacco: Never Assessed Sex and Gender Information Value Date Recorded Sex Assigned at Not on file Legal Sex Male 8:51 PM CDT Gender Identity Not on file Sexual Orientation Not on file documented as of this encounter Plan of Treatment Not on file documented as of this encounter Visit Diagnoses Not on filedocumented in this encounter Additional Health Concerns Infection Onset Date Last Indicated Resolved Time COVID-19 Rule Out 07/10/2021 07/10/2021 07/10/2021 10:55 AM CHEMICAL EDUCATOR COVID-19 Rule Out 08/19/2023 08/19/2023 08/19/2023 11:28 AM CHEMICAL EDUCATOR COVID-19 Confirmed 08/19/2023 08/19/2023 12:32 AM CHEMICAL EDUCATOR COVID-19 Rule Out 08/03/2024 08/03/2024 08/03/2024 8:20 PM CHEMICAL EDUCATOR COVID-19 Rule Out 08/15/2024 08/15/2024 08/15/2024 8:09 PM CHEMICAL EDUCATOR documented as of this encounter Care Teams Machine Tender Relationship Specialty Start Date End Date Yasmani Hernandez MD [address] [place] [phone] PCP - General FAMILY PRACTICE 03/18/19 08/11/24 Júnior Christine MD [address] [place] [id number] PCP - General INTERNAL MEDICINE 08/12/24 documented as of this encounter
== END 2024-10-16 13:57 | disposition home or self-care (01) ==
LOC: CHSCARD 13:58
PROVIDERS: PCP Internal Medicine; Visit Provider Internal Medicine Cardiovascular Disease
DX: R00.2 Palpitations (principal)
CPT/HCPCS: 93005

== ENCOUNTER 2025-01-12 07:48 | Outpatient (CLI) | payer MEDICARE, SELFPAY ==
--- NOTE | 2025-01-12 07:53 | EST_ITS ---
Patient Info Name: Pavithra Vaughan Age: 64 years : 1960 Gender: Male Ht: 68 in Wt: 262 lbs BSA: 2.44 m2 HR: 73 bpm BP: 130 / 77 mmHg Heart Rhythm: Sinus Rhythm Technical Quality: Good Exam Date: 01/12/2025 7:53 AM Patient Status: O Admit Date: 01/12/2025 Exam Type: CA stress test treadmill w NM A treadmill exercise stress test was performed. Staff Referring Physician: Carlos Stevenson DO Attending Provider: Carlos Stevenson DO Summary 1. 1. Negative Yasmani exercise stress test for ischemic ST changes by ECG criteria. 2. 2. Poor functional capacity, achieving 4.7 METs of workload. 3. 3. Appropriate HR response to exercise. 4. 4. Appropriate HR recovery at 1 minute post exercise. 5. 5. Nuclear scan to follow and will be reported separately. Please correlate with it. History/Risk Factors Hypertension: Yes Protocol: Yasmani Stress ECG Details Stage: REST Duration (min): 1 min : 42 sec Speed (mph): 0.0 Grade (%): 0 HR (bpm): 74 SBP (mmHg): 130 DBP (mmHg): 77 METS: --- Stage: REST Duration (min): 5 min : 7 sec Speed (mph): 0.0 Grade (%): 0 HR (bpm): 80 SBP (mmHg): 130 DBP (mmHg): 77 METS: --- Stage: STAGE 1 Duration (min): 1 min : 0 sec Speed (mph): 1.7 Grade (%): 10 HR (bpm): 109 SBP (mmHg): 130 DBP (mmHg): 77 METS: --- Stage: STAGE 1 Duration (min): 2 min : 0 sec Speed (mph): 1.7 Grade (%): 10 HR (bpm): 122 SBP (mmHg): 130 DBP (mmHg): 77 METS: --- Stage: STAGE 1 Duration (min): 3 min : 0 sec Speed (mph): 1.7 Grade (%): 10 HR (bpm): 129 SBP (mmHg): 130 DBP (mmHg): 77 METS: --- Stage: STAGE 1 Duration (min): 4 min : 0 sec Speed (mph): 1.7 Grade (%): 10 HR (bpm): 131 SBP (mmHg): 130 DBP (mmHg): 77 METS: --- Stage: STAGE 1 Duration (min): 5 min : 0 sec Speed (mph): 1.7 Grade (%): 10 HR (bpm): 135 SBP (mmHg): 130 DBP (mmHg): 77 METS: --- Stage: STAGE 1 Duration (min): 6 min : 0 sec Speed (mph): 1.7 Grade (%): 10 HR (bpm): 138 SBP (mmHg): 130 DBP (mmHg): 77 METS: --- Stage: STAGE 1 Duration (min): 6 min : 0 sec Speed (mph): 1.7 Grade (%): 10 HR (bpm): 139 SBP (mmHg): 130 DBP (mmHg): 77 METS: --- Stage: RECOVERY Duration (min): 0 min : 59 sec Speed (mph): 0.0 Grade (%): 0 HR (bpm): 127 SBP (mmHg): 130 DBP (mmHg): 77 METS: --- Stage: RECOVERY Duration (min): 1 min : 59 sec Speed (mph): 0.0 Grade (%): 0 HR (bpm): 113 SBP (mmHg): 196 DBP (mmHg): 85 METS: --- Stage: RECOVERY Duration (min): 2 min : 59 sec Speed (mph): 0.0 Grade (%): 0 HR (bpm): 107 SBP (mmHg): 196 DBP (mmHg): 85 METS: --- Stage: RECOVERY Duration (min): 3 min : 59 sec Speed (mph): 0.0 Grade (%): 0 HR (bpm): 95 SBP (mmHg): 156 DBP (mmHg): 76 METS: --- Stage: RECOVERY Duration (min): 4 min : 59 sec Speed (mph): 0.0 Grade (%): 0 HR (bpm): 99 SBP (mmHg): 156 DBP (mmHg): 76 METS: --- Stage: RECOVERY Duration (min): 5 min : 59 sec Speed (mph): 0.0 Grade (%): 0 HR (bpm): 95 SBP (mmHg): 156 DBP (mmHg): 76 METS: --- Stage: RECOVERY Duration (min): 6 min : 59 sec Speed (mph): 0.0 Grade (%): 0 HR (bpm): 89 SBP (mmHg): 195 DBP (mmHg): 74 METS: --- Stage: RECOVERY Duration (min): 7 min : 59 sec Speed (mph): 0.0 Grade (%): 0 HR (bpm): 92 SBP (mmHg): 195 DBP (mmHg): 74 METS: --- Stage: RECOVERY Duration (min): 8 min : 59 sec Speed (mph): 0.0 Grade (%): 0 HR (bpm): 89 SBP (mmHg): 195 DBP (mmHg): 74 METS: --- Stage: RECOVERY Duration (min): 9 min : 48 sec Speed (mph): 0.0 Grade (%): 0 HR (bpm): 90 SBP (mmHg): 144 DBP (mmHg): 70 METS: --- Rest HR: 80 bpm Peak HR: 140 bpm Rest Sys BP: 130 mmHg Peak Sys BP: 196 mmHg Max Pred HR: 155 bpm % Max Pred HR: 90 % Target HR: 132 bpm Max RPP: 27,440 bpm*mmHg García Score: -44 Target HR Summary: Test terminated after reaching target heart rate (85% max predicted) BP Response: Normal blood pressure response Termination Reason: Fatigue Cardiac Symptoms: None Max ST Seg Deviation: 9.90 mm Total Time: 6 min : 0 sec Rest Cox BP: 77 mmHg Peak Cox BP: 85 mmHg Angina Score: None Total METS: 4.7 Resting ECG Normal sinus rhythm - normal ECG. Stress ECG No abnormal ST/T wave changes with exercise. Arrhythmias None. Report Signatures
--- NOTE | 2025-01-12 14:21 | WPDCARIOSTRE ---
Nuclear Stress Test INDICATIONS Indications: Chest pain PROCEDURE Procedure Performed: Myocardial Perf Spect-Multi Procedure: Patient exercised on a standard Yasmani protocol and at peak HR was injected with 33.4 mCi of cardiolyte. Multiple tomographic images were obtained. These are of good quality. There is a moderate size, moderate severity apical perfusion defect and a small size, mild inferior perfusion defects with stress imaging. A separate resting images were obtained after patient was injected with 10.4 mCi of cardiolyte. Multiple tomographic images were obtained. These are of good quality. There is a moderate size, moderate severity apical perfusion defect and a small size, mild inferior perfusion defects with rest imaging. CONCLUSION Conclusion: 1. Myocardial perfusion imaging demonstrating a fixed moderate size apical and small size inferior perfusion defects which are suggestive of diaphragmatic attenuation artifact. 2. No evidence of reversible ischemia. 3. Left ventriculogram demonstrates normal measured ejection fraction of 74% with no wall motion abnormalities. 4. TID score 0.92 is not elevated.
== END 2025-01-12 07:49 | disposition home or self-care (01) ==
LOC: CHSIMG 07:50
PROVIDERS: PCP Internal Medicine; Visit Provider Internal Medicine Cardiovascular Disease
DX: R07.9 Chest pain, unspecified (principal)
CPT/HCPCS: 78452; 93017; A9502